=== PATIENT | male | born 1975 | race African-American/Black ===

== ENCOUNTER 2019-02-09 00:37 | Emergency (ER) | payer BC ==
[~2019-02-09] VITALS: Ht 177.8 cm; Wt 136.1 kg
[2019-02-09 01:20] VITALS: BP 135/86
--- NOTE | 2019-02-09 01:27 | PHYS DOC ---
Past Medical History Past Medical History: Anxiety Past Surgical History: No Surgical History Alcohol Use: None Drug Use: Marijuana Adult General Chief Complaint Chief Complaint: SHORTNESS OF BREATH HPI HPI Patient is a 43 year old [f__sex] who presents with [] Review of Systems Review of Systems Constitutional: Denies fever or chills [] Eyes: Denies change in visual acuity, redness, or eye pain [] HENT: Denies nasal congestion or sore throat [] Respiratory: Denies cough or shortness of breath [] Cardiovascular: No additional information not addressed in HPI [] GI: Denies abdominal pain, nausea, vomiting, bloody stools or diarrhea [] : Denies dysuria or hematuria [] Musculoskeletal: Denies back pain or joint pain [] Integument: Denies rash or skin lesions [] Neurologic: Denies headache, focal weakness or sensory changes [] Endocrine: Denies polyuria or polydipsia [] All other systems were reviewed and found to be within normal limits, except as documented in this note. Allergies Allergies Allergies Coded Allergies Type Severity Reaction Last Updated Verified No Known Drug Allergies 02/09/19 No Physical Exam Physical Exam Constitutional: Well developed, well nourished, no acute distress, non-toxic appearance. [] HENT: Normocephalic, atraumatic, bilateral external ears normal, oropharynx moist, no oral exudates, nose normal. [] Eyes: PERRLA, EOMI, conjunctiva normal, no discharge. [] Neck: Normal range of motion, no tenderness, supple, no stridor. [] Cardiovascular:Heart rate regular rhythm, no murmur [] Lungs & Thorax: Bilateral breath sounds clear to auscultation [] Abdomen: Bowel sounds normal, soft, no tenderness, no masses, no pulsatile masses. [] Skin: Warm, dry, no erythema, no rash. [] Back: No tenderness, no CVA tenderness. [] Extremities: No tenderness, no cyanosis, no clubbing, ROM intact, no edema. [] Neurologic: Alert and oriented X 3, normal motor function, normal sensory function, no focal deficits noted. [] Psychologic: Affect normal, judgement normal, mood normal. [] Current Patient Data Vital Signs Vital Signs Date Time Temp Pulse Resp B/P (MAP) Pulse Ox O2 Delivery O2 Flow Rate FiO2 02/09/19 00:50 82 20 118/83 (95) 100 Room Air 02/09/19 00:45 97.6 97.6 EKG EKG [] Radiology/Procedures Radiology/Procedures [] Course & Med Decision Making Course & Med Decision Making Pertinent Labs and Imaging studies reviewed. (See chart for details) [] Dragon Disclaimer Dragon Disclaimer This electronic medical record was generated, in whole or in part, using a voice recognition dictation system. Departure Departure Impression: Primary Impression: Shortness of breath Additional Impression: Adverse drug effect Disposition: 01 HOME, SELF-CARE Condition: STABLE Referrals: NO PCP (PCP) Patient Instructions: Shortness of Breath, [id number] Additional Instructions: Your symptoms may be secondary to your newly prescribed medications. Please follow closely with your doctor for adjustment of your medications. IF you decide to completely discontinue these medications, please slowly decrease the medications use by taking it every other day or breaking the tablet in two for the next two weeks before completely stopping them. Problem Qualifiers Additional Impression: Adverse drug effect Encounter type: initial encounter Qualified Codes: T50.905A - Adverse effect of unspecified drugs, medicaments and biological substances, initial encounter GRETA KILPATRICK DO Feb 09, 2019 01:27
--- NOTE | 2019-02-09 01:33 | PHYS DOC ---
Past Medical History Past Medical History: Anxiety, Schizophrenia Past Surgical History: No Surgical History Smoking: Cigar Alcohol Use: None Drug Use: Marijuana Adult General Chief Complaint Chief Complaint: SHORTNESS OF BREATH HPI HPI 43-year-old male who presents with shortness of breath. A month ago he started taking temazepam and Latuda. A week ago he started noticing shortness of breath 1-2 hours after taking the medications. He is also having drowsiness due to medications. He reports that he has difficulty taking a deep breath and difficulty yawning. It is worse while he is lying down and better when he standing. He had a panic attack on Monday this week, but says that this di fficulty breathing is different than when he is having a panic attack. Review of Systems Review of Systems Constitutional: Denies fever or chills Eyes: Denies redness or eye pain HENT: Denies nasal congestion or sore throat Respiratory: Reports cough and shortness of breath Cardiovascular: Denies chest pain or palpitations GI: Denies abdominal pain, nausea, or vomiting : Denies dysuria or hematuria Musculoskeletal: Denies back pain or joint pain Integument: Denies rash or skin lesions Neurologic: Denies headache, focal weakness or sensory changes Complete systems were reviewed and found to be within normal limits, except as documented in this note. Allergies Allergies Allergies Coded Allergies Type Severity Reaction Last Updated Verified No Known Drug Allergies 02/09/19 No Physical Exam Physical Exam Constitutional: Well developed, well nourished, no acute distress, non-toxic danny earance HENT: Normocephalic, atraumatic, oropharynx moist Eyes: PERRL, EOMI, conjunctiva normal, no discharge Neck: Normal range of motion, no tenderness, supple Cardiovascular: Heart rate normal, regular rhythm Lungs & Thorax: Bilateral breath sounds clear to auscultation, no wheezing Abdomen: Soft, no tenderness Skin: Warm, dry, no erythema, no rash Back: No tenderness, no CVA tenderness Extremities: No tenderness, ROM intact, no edema Neurologic: Alert and oriented X 3, normal motor function, normal sensory function, no focal deficits noted Psychologic: Affect normal, judgement normal, mood normal Current Patient Data Vital Signs Vital Signs Date Time Temp Pulse Resp B/P (MAP) Pulse Ox O2 Delivery O2 Flow Rate FiO2 02/09/19 00:50 82 20 118/83 (95) 100 Room Air 02/09/19 00:45 97.6 97.6 EKG EKG [] Radiology/Procedures Radiology/Procedures [] Course & Med Decision Making Course & Med Decision Making Mr. Fierro is a 43-year-old male who presents with shortness of breath. A month ago he started taking temazepam and Latuda for mental health conditions. A week ago he started having shortness of breath every night 1-2 hours after taking the medication. He has difficulty taking a deep breath and yawning that is worse wh ile lying down. He denies fever, chills, wheezing, or increased cough. We offered to get a chest x-ray, but the patient declined. He said that he thinks it is related to the medications. He was instructed that it would be best to slowly taper his medications and to follow-up with his primary care doctor before abruptly stopping stopping them. Patient stable for discharge with outpatient follow-up with PCP. Discussed findings and plan with patient and family, who acknowledge understanding and agreement. Dragon Disclaimer Dragon Disclaimer This electronic medical record was generated, in whole or in part, using a voice recognition dictation system. Departure Departure Referrals: NO PCP (PCP) PERC Rule for PE PERC Rule for PE PERC Rule for PE Response (Comments) Value Age > 50: No 0 HR > 100: No 0 Sa02 on room air <95%: No 0 Unilateral leg swelling: No 0 Hemoptysis: No 0 Recent surgery or trauma: No 0 Prior PE or DVT: No 0 Hormone use: No 0 Total 0 KILPATRICKGRETA DO Feb 09, 2019 01:32
== END 2019-02-09 01:35 | disposition home or self-care (01) ==
LOC: ER 00:37
DX: R06.02 Shortness of breath (principal); T50.995A Adverse effect of other drugs, medicaments and biological substances, initial encounter; R40.0 Somnolence; R06.89 Other abnormalities of breathing; F17.210 Nicotine dependence, cigarettes, uncomplicated; F41.9 Anxiety disorder, unspecified; Y92.89 Other specified places as the place of occurrence of the external cause
CPT/HCPCS: 99283

== ENCOUNTER 2019-03-18 17:38 | Emergency (ER) | payer BC, OTHER ==
[~2019-03-18] VITALS: Ht 182.9 cm; Wt 141.5 kg
[2019-03-18] MEDS ORDERED: IV NORMAL SALINE 1000ML BAG 1,000 ML IV ONE (18:15)
[2019-03-18 18:25] LABS: BASO # 0.1 x10^3/uL (0.0-0.2); BASO % 1 % (0-3); EOS % 0 % (0-3); HEMATOCRIT 40.6 % (39.0-53.0); HEMOGLOBIN 13.7 g/dL (13.0-17.5); LYMPH # 1.1 x10^3/uL (1.0-4.8); LYMPH % 8 % (24-48); MEAN CORPUSCULAR HEMOGLOBIN 29 pg (25-35); MEAN CORPUSCULAR HGB CONC 34 g/dL (31-37); MEAN CORPUSCULAR VOLUME 85 fL (79-100); MONO # 0.6 x10^3/uL (0.0-1.1); MONO % 4 % (0-9); NEUT # 12.8 x10^3/uL (1.8-7.7); NEUT % 88 % (31-73); PLATELET COUNT 248 x10^3/uL (140-400); RED BLOOD COUNT 4.76 x10^6/uL (4.30-5.70); RED CELL DISTRIBUTION WIDTH 14.9 % (11.5-14.5); WHITE BLOOD COUNT 14.6 x10^3/uL (4.0-11.0)
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
[2019-03-18 18:46] LABS: CALCIUM 9.7 mg/dL (8.5-10.1); CREATININE 1.6 mg/dL (0.7-1.3); GFR 57.9; POTASSIUM 4.1 mmol/L (3.5-5.1)
[2019-03-18 18:51] LABS: ALBUMIN 3.9 g/dL (3.4-5.0); ALBUMIN/GLOBULIN RATIO 1.1 (1.0-1.7); MAGNESIUM 2.3 mg/dL (1.8-2.4); TOTAL BILIRUBIN 0.2 mg/dL (0.2-1.0); TOTAL PROTEIN 7.6 g/dL (6.4-8.2)
--- NOTE | 2019-03-18 18:57 | RAD ---
Exam: CT head INDICATION: Syncope TECHNIQUE: Sequential axial images through the head were obtained without the administration of IV contrast. Comparisons: None FINDINGS: No focal parenchymal lesion or hemorrhage is identified. There is no midline shift or sulcal effacement. No acute vascular territory infarction is identified. Jefferson-white distinction is preserved. The ventricular system is within normal limits without compression hydrocephalus. The basal cisterns are well maintained. Dural calcifications in the middle cranial fossa bilaterally. The visualized portions of the paranasal sinuses and mastoid air cells are well-pneumatized. No acute fractures. IMPRESSION: No acute intracranial abnormality. Exposure: One or more of the following in the visualized dose reduction techniques were utilized for this examination: 1. Automated exposure control 2. Adjustment of the MA and/or KV according to patient size Use of iterative of reconstructive technique Electronically signed by: Kaveh Dubose MD (03/18/2019 6:54 PM) [facility]
[2019-03-18 18:58] LABS: % BASOS 4 % (0-3); % LYMPHS 26 % (24-48); % MONOS 4 % (0-10); % SEGS 66 % (35-66); PLT ESTIMATE ADEQUATE (ADEQUATE)
[2019-03-18 19:34] LABS: BARBITURATES NEG (NEG); BENZODIAZEPINES NEG (NEG); CANNABINOIDS POS (NEG); COCAINE NEG (NEG); METHADONE NEG (NEG); OPIATES NEG (NEG); PHENCYCLIDINE NEG (NEG)
[2019-03-18 19:35] LABS: AMPHETAMINE/METHAMPHETAMINE NEG (NEG)
[2019-03-18 20:00] VITALS: BP 124/64
--- NOTE | 2019-03-19 05:12 | EKG ---
[facility] [address] [place] [address] Test Date: 2019-03-18 Test Time: 17:43:48 Pat Name: RASHAD MCFADDEN Department: Room: Gender: M [id number] Consultant: : 1975 Requested By: CHRISTINE MCGILL Order Number: [id number] Reading MD: Measurements Intervals [place] Rate: 120 P: 38 NV: 154 QRS: 3 QRSD: 74 T: 24 QT: 298 QTc: 426 Interpretive Statements SINUS TACHYCARDIA QRS(T) CONTOUR ABNORMALITY CONSIDER ANTEROSEPTAL MYOCARDIAL DAMAGE POSSIBLY ABNORMAL ECG RI6.01 Unconfirmed report No previous ECG available for comparison
== END 2019-03-18 20:40 | disposition home or self-care (01) ==
LOC: ER 17:38
DX: R55 Syncope and collapse (principal); F12.20 Cannabis dependence, uncomplicated; N28.9 Disorder of kidney and ureter, unspecified; F41.9 Anxiety disorder, unspecified
CPT/HCPCS: 36415; 70450; 80053; 80307; 83735; 84484; 85007; 85025; 93005; 96360; 99285; G0480; J7030

== ENCOUNTER 2021-04-14 23:36 | Emergency (ER) | payer SELFPAY ==
[~2021-04-14] VITALS: Ht 177.8 cm; Wt 122.0 kg
[2021-04-15 04:00] VITALS: BP 121/71
--- NOTE | 2021-04-15 04:03 | PHYS DOC ---
Past Medical History Past Medical History: Anxiety, Schizophrenia Past Surgical History: Other Additional Past Surgical Histo: left arm surgery Smoking Status: Current Some Day Smoker Alcohol Use: None Drug Use: Marijuana General Adult EDM: Chief Complaint: MULTIPLE COMPLAINTS HPI: HPI: 45-year-old male PMH schizophrenia, anxiety and marijuana use, presents to the ED with multiple complaints stating "my chest was burning when I breathed," after smoking marijuana, with associated shortness of breath, nausea and headache. Patient states those symptoms have resolved but he wanted to make sure "everything is okay." Also reports " my stomach is hurting like it's hungry." Denies associated fever chills, lack of taste or smell, diarrhea, syncope, dizziness, chest pain, myalgias or fatigue. No personal or family history of AAA, AAD, CTD (ehlos danlos or marfans), cardiac arrhythmias (need for AICD), CAD, sudden or unexplainable (under 50 years of age or with exertion), or clotting disorders. Patient is adamant he was not drinking any alcohol, use any cocaine or other coingestants. Review of Systems: Review of Systems: Constitutional: Denies fever or chills. [] Eyes: Denies change in visual acuity. [] HENT: Denies nasal congestion or sore throat. [] Respiratory: Denies cough or hemoptysis Cardiovascular: Denies syncope or edema. [] GI: Denies vomiting, bloody stools or diarrhea. [] Musculoskeletal: Denies back pain or joint pain. [] Integument: Denies rash or diaphoresis Neurologic: Denies focal weakness or sensory changes. [] Psychiatric: Denies hallucinations, homicidal or suicidal ideations Heart Score: C/O Chest Pain: No Risk Factors: Risk Factors: DM, Current or recent (<one month) smoker, HTN, HLP, family history of CAD, obesity. Risk Scores: Score 0 - 3: 2.5% MACE over next 6 weeks - Discharge Home Score 4 - 6: 20.3% MACE over next 6 weeks - Admit for Clinical Observation Score 7 - 10: 72.7% MACE over next 6 weeks - Early Invasive Strategies Allergies: Allergies: Allergies Coded Allergies Type Severity Reaction Last Updated Verified No Known Drug Allergies 02/09/19 No Physical Exam: PE: Constitutional: Well developed, well nourished, no acute distress, non-toxic appearance. HENT: Normocephalic, atraumatic, Eyes: EOMI, conjunctiva normal, no discharge. Neck: Normal range of motion, supple, Cardiovascular: S1/2 present, regular rhythm Lungs & Thorax: Speaking in full sentences, bilateral equal chest rise, no tachypnea or increased work of breathing Skin: Warm, dry, Extremities: No tenderness, no cyanosis, Neurologic: Alert and oriented X 3, normal motor function, normal sensory function, no focal deficits noted. [] Psychologic: Calm male, slightly disorganized thought processing but is very redirectable, no agitation Current Patient Data: Vital Signs: Vital Signs Date Time Temp Pulse Resp B/P (MAP) Pulse Ox O2 Delivery O2 Flow Rate FiO2 04/15/21 03:00 85 18 130/83 (99) 99 Room Air 04/15/21 00:50 98.1 98.1 EKG: EKG: Sinus rhythm 70 bpm, no axis deviation, normal intervals, T wave inversion in 3, no ST elevation or ST depression Radiology/Procedures: Radiology/Procedures: PERC rule for pulmonary embolus 0 criteria No need for further workup, as <2% chance of PE. If no criteria are positive and clinicians pre-test probability is <15%, PERC Rule criteria are satisfied. IMAGING REPORT Signed PATIENT: RASHAD MCFADDEN ACCOUNT: [id number] : 1975 LOCATION: ER AGE: 45 SEX: M EXAM STATUS: REG ER ORD. PHYSICIAN: MARY GRACE JENSEN DO REASON: cp PROCEDURE: CHEST AP ONLY Chest AP portable at 0218: Reason for examination: Chest pain. The heart size is normal. Mediastinum is unremarkable. Lung rueda are clear. No acute bony abnormalities are seen. Impression: No acute cardiopulmonary disease. Electronically signed by: Edna Lima MD (04/15/2021 4:51 AM) [facility] DICTATED and SIGNED BY: EDNA LIMA MD DATE: 04/15/21 [id number] 0 Course & Med Decision Making: Course & Med Decision Making Pertinent Labs and Imaging studies reviewed. (See chart for details) Concern for brief episode of nausea, shortness of breath and headache after smoking marijuana. Symptoms have resolved. Patient is hemodynamically stable, protecting his airway, afebrile. Patient with no associated chest pressure or tightness. Will discharge home with strict ED return precautions were given for syncope, neurologic deficits, hemoptysis, chest pain increased work of breathing or difficulties breathing. Encouraged urgent outpatient follow-up with PMD. Life-threatening processes were considered but are low suspicion at this time, given history, physical exam and ED workup. Pt was educated on all prescription medications and adverse effects. All patient's questions were answered and pt was stable at time of discharge. Life/limb-threatening differential includes but is not limited to, ACS, dysrhythmia, pneumothorax or hemothorax, pulmonary embolus, pneumonia, bron choconstriction, pulmonary edema, angioedema, epiglottitis, tracheitis, Cristian's angina, RPA/DECORATOR MANNEQUIN, anaphylaxis, angioedema, cardiac tamponade or murmurs, pericarditis, myocarditis, poisoning or toxicity, sepsis or autoimmune/neurologic disease. I have spoken with the patient and/or caregivers. I explained the patient's condition, diagnoses and treatment plan based on the information available to me at this time. I have answered the patient and/or caregiver's questions and addressed any concerns. The patient and/or caregivers have a good understanding of patient's diagnosis, condition and treatment plan as can be expected at this point. Vital signs have been stable. Patient's condition is stable and appropriate for discharge from the emergency department. Patient will pursue further outpatient evaluation with primary care physician or other designated or consulting physician as outlined in the discharge instructions. The patient and/or caregivers are agreeable to this plan of care and follow-up instructions have been explained in detail. The patient and/or caregivers have received these instructions in written form and have expressed an understanding of the discharge instructions. The patient and/or caregivers are aware that any significant change of condition or worsening of symptoms should prompt immediate return to this or the closest emergency department or call to 911. Rusty Disclaimer: Rusty Disclaimer: This electronic medical record was generated, in whole or in part, using a voice recognition dictation system. Departure Departure Impression: Primary Impression: Marijuana abuse Additional Impression: Dyspnea Disposition: HOME / SELF CARE / HOMELESS Condition: STABLE Referrals: NO PCP (PCP) Follow-up with your primary care physician in 24 to 48 hours OR FOLLOW UP WITH FAMILY MEDICINE: [address] [place] [address] Patient Instructions: Marijuana Abuse and Chemical Dependency Additional Instructions: [employer] AND FOR SUBSTANCE ABUSE MANAGEMENT [address] [place] [address] 24-hour crisis line: [phone] EMERGENCY DEPARTMENT GENERAL DISCHARGE INSTRUCTIONS Thank you for coming to [facility] Emergency Department (ED) today and trusting us with you care. We trust that you had a positive experience in our Emergency Department. If you wish to speak to the department management, you may call the Director at [phone]. YOUR FOLLOW UP INSTRUCTIONS ARE FOLLOWS: 1. Do you have a private Doctor? If you do not have a private doctor, please ask for a resource list of physicians or clinics that may be able to assist you with follow up care. 2. The Emergency Physicain has interpreted your x-rays. The X-Ray specialist will also review them. If there is a change in the findings, you will be notified in 48 hours when at all possible. 3. A lab test or culture has been done, your results will be reviewed and you will be notified if you need a change in treatment. ADDITIONAL INSTRUCTIONS AND INFORMATION: 1. Your care today has been supervised by a physician who is specially trained in emergency care. Many problems require more than one evaluation for a complete diagnosis and treatment. We recommend that you schedule your follow up appointment as recom mended to ensure complete treatment of you illness or injury. If you are unable to obtain follow up care and continue to have a problem, or if your condition worsens, we recommend that you return to the ED. 2. We are not able to safely determine your condition over the phone nor are we able to give sound medical advice over the phone. For these safety reasons, if you call for medical advice we will ask you to come to the ED for further evaluation. 3. If you have any questions regarding these discharge instructions please call the ED at [phone]. SAFETY INFORMATION: In the interest of safety, wellness, and injury prevention; we encourage you to wear your sealbelt, if you smoke; quite smoking, and we encourage family to use a protective helmet for bicycling and other sporting events that present an increased risk for head injury. IF YOUR SYMPTOMS WORSEN OR NEW SYMPTOMS DEVELOP, OR YOU HAVE CONCERNS ABOUT YOUR CONDITION; OR IF YOUR CONDITION WORSENS WHILE YOU ARE WAITING FOR YOUR FOLLOW UP APPOINTMENT; EITHER CONTACT YOUR PRIMARY CARE DOCTOR, THE PHYSICIAN WHOSE NAME AND NUMBER YOU WERE GIVEN, OR RETURN TO THE ED IMMEDIATELY. [facility] GRACE DO Apr 15, 2021 04:03
--- NOTE | 2021-04-15 04:23 | EKG ---
[facility] [address] [place] [address] Test Date: 2021-04-15 Test Time: 02:40:49 Pat Name: RASHAD MCFADDEN Department: Room: Gender: M Credit Professional: : 1975 Requested By: MARY GRACE JENSEN Order Number: [id number] Reading MD: Syed Hayden MD Measurements Intervals [place] Rate: 70 P: 35 MI: 144 QRS: 20 QRSD: 82 T: 17 QT: 388 QTc: 422 Interpretive Statements SINUS RHYTHM Electronically Signed On 04-15-2021 8:50:40 CDT by Syed Hayden MD
--- NOTE | 2021-04-15 04:53 | RAD ---
Chest AP portable at 0218: Reason for examination: Chest pain. The heart size is normal. Mediastinum is unremarkable. Lung rueda are clear. No acute bony abnormali ties are seen. Impression: No acute cardiopulmonary disease. Electronically signed by: Edna Forte MD (04/15/2021 4:51 AM) TAWANDA
== END 2021-04-15 04:41 | disposition home or self-care (01) ==
LOC: ER 23:36
DX: F12.10 Cannabis abuse, uncomplicated (principal); R06.02 Shortness of breath; F20.9 Schizophrenia, unspecified; F17.200 Nicotine dependence, unspecified, uncomplicated
CPT/HCPCS: 71045; 93005; 99285-25

== ENCOUNTER 2021-12-01 09:43 | Emergency (ER) | payer SELFPAY ==
[~2021-12-01] VITALS: Ht 182.9 cm; Wt 136.0 kg
--- NOTE | 2021-12-01 09:58 | PHYS DOC ---
Past Medical History Past Medical History: Anxiety, Schizophrenia Past Surgical History: Other Additional Past Surgical Histo: left arm surgery Smoking Status: Current Some Day Smoker Alcohol Use: None Drug Use: Marijuana Adult General Chief Complaint Chief Complaint: SEIZURE HPI HPI Patient is a 45 year old male who presents with seizure. Little history is available from the patient as he is just coming out of postictal state at the time of the interview. Per ambulance report, patient was witnessed to have tonic-clonic activity at home and EMS was called. He did not have witnessed seizure activity by EMS but was postictal in route to the hospital. IV was established. Blood sugar was 107. At the time of this interview, patient wakes up and is confused about his location. After he is given orientation, patient is alert and answering questions appropriately. States he does not remember what happened. He does complain of a headache. Denies neck pain. Does endorse prior history of seizure disorder and also states he has not been compliant with medications but he cannot currently remember which medications he is supposed to be taking. Review of Systems Review of Systems Constitutional: Denies fever or chills Eyes: Denies change in visual acuity, redness, or eye pain HENT: Denies nasal congestion or sore throat Respiratory: Denies cough or shortness of breath Cardiovascular: No additional information not addressed in HPI GI: Denies Musculoskeletal: Denies back pain Integument: Denies rash or skin lesions Neurologic: seizure Endocrine: Denies polyuria All other systems were reviewed and found to be within normal limits, except as documented in this note. Current Medications Current Medications Current Medications Medications (Trade) Dose Ordered Sig/Elida Start Time Stop Time Status Last Admin Dose Admin Levetiracetam 100 ml @ 400 mls/hr 1X ONCE 12/01/21 10:30 12/01/21 10:44 DC 12/01/21 10:36 400 MLS/HR Lorazepam (Ativan Inj) 0.25 mg 1X ONCE 12/01/21 10:30 12/01/21 10:31 DC 12/01/21 10:36 0.25 MG Sodium Chloride 1,000 ml @ 1,000 mls/hr 1X ONCE 12/01/21 11:45 12/01/21 12:44 DC 12/01/21 11:53 1,000 MLS/HR Allergies Allergies Allergies Coded Allergies Type Severity Reaction Last Updated Verified No Known Drug Allergies 02/09/19 No Physical Exam Physical Exam Constitutional: Well developed, well nourished, no acute distress, non-toxic appearance. HENT: Normocephalic, atraumatic, bilateral external ears normal, oropharynx moist, no oral exudates, nose normal. Eyes: PERRLA, EOMI, conjunctiva normal Neck: Normal range of motion, no tenderness Cardiovascular:Heart rate regular rhythm, no murmur Lungs & Thorax: Bilateral breath sounds clear Abdomen: Bowel sounds normal, soft Skin: Warm, dry, no erythema, no rash. Back: Normal ROM Extremities: No tenderness, no cyanosis, no clubbing, ROM intact, no edema. Neurologic: Alert and oriented X 3, normal motor function, normal sensory function, no focal deficits noted Psychologic: Affect normal Current Patient Data Vital Signs Vital Signs Date Time Temp Pulse Resp B/P (MAP) Pulse Ox O2 Delivery O2 Flow Rate FiO2 12/01/21 13:28 104 16 120/75 (90) 96 12/01/21 09:45 98.3 Room Air 98.3 Lab Values Laboratory Tests Test 12/01/21 09:50 White Blood Count 12.2 x10^3/uL (4.0-11.0) H Red Blood Count 4.74 x10^6/uL (4.30-5.70) Hemoglobin 14.1 g/dL (13.0-17.5) Hematocrit 42.6 % (39.0-53.0) Mean Corpuscular Volume 90 fL (79-100) Mean Corpuscular Hemoglobin 30 pg (25-35) Mean Corpuscular Hemoglobin Concent 33 g/dL (31-37) Red Cell Distribution Width 16.2 % (11.5-14.5) H Platelet Count 229 x10^3/uL (140-400) Neutrophils (%) (Auto) 88 % (31-73) H Lymphocytes (%) (Auto) 7 % (24-48) L Monocytes (%) (Auto) 5 % (0-9) Eosinophils (%) (Auto) 0 % (0-3) Basophils (%) (Auto) 0 % (0-3) Neutrophils # (Auto) 10.8 x10^3/uL (1.8-7.7) H Lymphocytes # (Auto) 0.8 x10^3/uL (1.0-4.8) L Monocytes # (Auto) 0.6 x10^3/uL (0.0-1.1) Eosinophils # (Auto) 0.0 x10^3/uL (0.0-0.7) Basophils # (Auto) 0.0 x10^3/uL (0.0-0.2) Sodium Level 141 mmol/L (136-145) Potassium Level 3.4 mmol/L (3.5-5.1) L Chloride Level 104 mmol/L (98-107) Carbon Dioxide Level 19 mmol/L (21-32) L Anion Gap 18 (6-14) H Blood Urea Nitrogen 9 mg/dL (8-26) Creatinine 1.6 mg/dL (0.7-1.3) H Estimated GFR (Cockcroft-Gault) 57.4 Glucose Level 111 mg/dL (70-99) H Calcium Level 9.1 mg/dL (8.5-10.1) Magnesium Level 2.8 mg/dL (1.8-2.4) H Laboratory Tests 12/01/21 09:50 Laboratory Tests 12/01/21 09:50 EKG EKG 09:55: EKG is normal sinus rhythm with rate of 101. No ST changes to suggest ischemia or STEMI. Normal intervals. Radiology/Procedures Radiology/Procedures [] Course & Med Decision Making Course & Med Decision Making Pertinent Labs and Imaging studies reviewed. (See chart for details) 10:15: Seen and examined. Currently waking up with some confusion but is eventually oriented. Uncertain what medications he takes. Today, we will give Keppra and check basic labs. Complains of headache and will do CT scan. Normal neurologic examination. He does have history of seizures and endorses poor compliance with medications. 13:50: Observed in the emergency department today for several hours. Has been awake and alert since the initial interview. He received Keppra IV load. His l abs were consistent with dehydration and he was given 2 L of normal saline. CT scan of the head was negative. No additional indication for admission or work- up in the ER. He is stable for discharge home. He is placed on Keppra 500 mg twice daily and recommended to follow-up with his primary care doctor. Come back to the ER as needed. Strongly encourage medication compliance. If Keppra is not his normal medication, I recommended he resume his normal medications Rusty Disclaimer Dragon Disclaimer This electronic medical record was generated, in whole or in part, using a voice recognition dictation system. Departure Departure Impression: Primary Impression: Seizure disorder Disposition: HOME / SELF CARE / HOMELESS Condition: IMPROVED Referrals: NO PCP (PCP) Patient Instructions: Seizure, Adult Scripts Levetiracetam (KEPPRA) 500 Mg Tablet 1 TAB PO BID for 30 Days, #60 TAB 0 Refills Prov: PETE MORALES DO 12/01/21 PETE MORALES DO Dec 01, 2021 09:58
[2021-12-01] MEDS ORDERED: IV NORMAL SALINE 1000ML BAG 1,000 ML IV ONE ×2 (10:30→11:45)
[2021-12-01] MEDS ORDERED: levETIRAcetam 1,000mg PREMIX 100 ML IV ONE (10:30)
[2021-12-01 11:00] LABS: BASO % 0 % (0-3); EOS % 0 % (0-3); HEMATOCRIT 42.6 % (39.0-53.0); HEMOGLOBIN 14.1 g/dL (13.0-17.5); LYMPH # 0.8 x10^3/uL (1.0-4.8); LYMPH % 7 % (24-48); MEAN CORPUSCULAR HEMOGLOBIN 30 pg (25-35); MEAN CORPUSCULAR HGB CONC 33 g/dL (31-37); MEAN CORPUSCULAR VOLUME 90 fL (79-100); MONO # 0.6 x10^3/uL (0.0-1.1); MONO % 5 % (0-9); NEUT # 10.8 x10^3/uL (1.8-7.7); NEUT % 88 % (31-73); PLATELET COUNT 229 x10^3/uL (140-400); RED BLOOD COUNT 4.74 x10^6/uL (4.30-5.70); RED CELL DISTRIBUTION WIDTH 16.2 % (11.5-14.5); WHITE BLOOD COUNT 12.2 x10^3/uL (4.0-11.0)
[2021-12-01 11:14] LABS: CALCIUM 9.1 mg/dL (8.5-10.1); CREATININE 1.6 mg/dL (0.7-1.3); GFR 57.4; MAGNESIUM 2.8 mg/dL (1.8-2.4); POTASSIUM 3.4 mmol/L (3.5-5.1)
--- NOTE | 2021-12-01 11:14 | RAD ---
Exam Date: 12/01/2021 10:[address] HEAD/BRAIN WO Indication: Reason: Seizure. c/o headache / Spl. Instructions: / History: . TECHNIQUE: Head CT was performed without intravenous contrast. One or more of the following dose re duction techniques were utilized: *Automated exposure control (AEC) *Adjustment of mA and/or kV according to patient size *Use of iterative reconstruction technique *CT scan done according to ALARA, or ALARA/IMAGE GENTLY COMPARISON: March 18, 2019 FINDINGS: The ventricles and sulci are normal for the patient's stated age. There is no evidence of acute int racranial hemorrhage, extra-axial collection, mass effect, midline shift, or acute territorial infarc t. No lesion of the skull base or the calvarium is seen. The visualized paranasal sinuses, mastoid ai r cells and orbits are normal in appearance. Transverse sinus stent noted on the right. IMPRESSION: No evidence for acute intracranial abnormality. Electronically signed by: Bo Anderson MD (12/01/2021 11:11 AM) [id number]
--- NOTE | 2021-12-01 11:54 | EKG ---
[address] [place] [address] Test Date: 2021-12-01 Test Time: 09:50:21 Pat Name: RASHAD MCFADDEN Department: Room: Gender: M Labor Economist: : 1975 Requested By: PETE MORALES Order Number: [id number] Reading MD: Stevenson Shepherd Measurements Intervals [place] Rate: 101 P: 38 DC: 176 QRS: 29 QRSD: 82 T: 36 QT: 330 QTc: 429 Interpretive Statements SINUS TACHYCARDIA Electronically Signed On 12-01-2021 16:15:18 CDT by Stevenson Shepherd
[2021-12-01] MEDS ORDERED: LEVE500T56 PO (13:53)
[2021-12-01 15:27] VITALS: BP 158/79
== END 2021-12-01 15:28 | disposition home or self-care (01) ==
LOC: ER 09:43
DX: G40.909 Epilepsy, unspecified, not intractable, without status epilepticus (principal); F20.9 Schizophrenia, unspecified; F17.200 Nicotine dependence, unspecified, uncomplicated
CPT/HCPCS: 36415; 70450; 80048; 83735; 85025; 93005; 96361; 96365; 96375; 99285; J2060; J7030